=== PATIENT | female | born 1965 | race Two or more races ===

== ENCOUNTER 2017-05-19 07:03 | Outpatient (CLI) | payer OTHER ==
[~2017-05-19 07:03] MED LIST: AMITRIPTYLINE H50 MG; FIORICET 50-301 EACH PO; FIORICET PO; FLONASE16 GM NASAL; GILTUSS TR TAB1 EACH PO; KETO10TA2 PO; MYCO NAIL30 ML TOP; ORPH100T PO; PENLAC6.6 ML TOP; PROMETHAZINE W118 ML PO; PROVENTIL3 ML/2.5 M IH; RELAGESIC TABL1 EACH PO; TESSALON PERLE100 MG PO; TORADOL 10 MG PO; VITAMIN D2000 UNI1; VOLTAREM; VOLTAREM 50 MG PO; ZYRTEC10 MG PO; [UNRECOGNIZED DRUG - OTHER]
== END 2017-05-19 10:56 | disposition home or self-care (01) ==
LOC: TOM 07:03
DX: R22.1 Localized swelling, mass and lump, neck (principal)

== ENCOUNTER 2017-05-21 08:12 | Outpatient (CLI) | payer OTHER ==
[~2017-05-21] VITALS: Ht 152.4 cm; Wt 56.2 kg
== END 2017-05-21 08:30 | disposition home or self-care (01) ==
LOC: OFIC 805 08:12
DX: R22.1 Localized swelling, mass and lump, neck (principal)

== ENCOUNTER 2017-06-26 06:43 | Outpatient (CLI) | payer OTHER ==
[2017-07-01] MEDS ORDERED: MIXED TOCOTRIE1 EACH (17:10)
== END 2017-06-26 06:46 | disposition home or self-care (01) ==
LOC: SONOGRAMA 06:43
DX: E04.1 Nontoxic single thyroid nodule (principal)

== ENCOUNTER → 2017-07-01 | Outpatient (CLI) | payer OTHER ==
[~2017-07-01] VITALS: Ht 152.4 cm; Wt 57.2 kg
[~2017-07-01] MED LIST changes: +MIXED TOCOTRIE1 EACH
== END | disposition home or self-care (01) ==
LOC: PPHC 17:01
DX: R51 Headache (principal); R05 Cough; R09.89 Other specified symptoms and signs involving the circulatory and respiratory systems

== ENCOUNTER 2017-07-02 06:56 | Outpatient (CLI) | payer OTHER | END 2017-07-02 07:07 | disposition home or self-care (01) | LOC: LAB 06:56 | DX: E55.9 Vitamin D deficiency, unspecified (principal) ==

== ENCOUNTER 2017-07-02 06:58 | Outpatient (CLI) | payer OTHER | END 2017-07-02 07:04 | disposition home or self-care (01) | LOC: RAD 06:58 | DX: R05 Cough (principal); R09.89 Other specified symptoms and signs involving the circulatory and respiratory systems ==

== ENCOUNTER → 2017-07-16 17:09 | Outpatient (CLI) | payer OTHER | END | disposition home or self-care (01) | LOC: RAD 17:09 | DX: M54.5 Low back pain (principal); S99.912A Unspecified injury of left ankle, initial encounter; S39.92XA Unspecified injury of lower back, initial encounter; S89.92XA Unspecified injury of left lower leg, initial encounter ==

== ENCOUNTER → 2017-07-17 | Emergency (ER) | payer OTHER ==
[~2017-07-17] VITALS: Ht 162.6 cm; Wt 57.2 kg
== END | disposition home or self-care (01) ==
LOC: ER 15:40
DX: S90.31XA Contusion of right foot, initial encounter (principal); S90.01XA Contusion of right ankle, initial encounter; V49.9XXA Car occupant (driver) (passenger) injured in unspecified traffic accident, initial encounter; Y93.89 Activity, other specified; Y92.488 Other paved roadways as the place of occurrence of the external cause; Y99.8 Other external cause status

== ENCOUNTER → 2017-08-25 | Outpatient (CLI) | payer OTHER | END | disposition home or self-care (01) | LOC: PPHC 15:41 | DX: R51 Headache (principal); M54.5 Low back pain ==

== ENCOUNTER → 2017-11-07 06:53 | Outpatient (CLI) | payer OTHER | END | disposition home or self-care (01) | LOC: LAB 06:53 | DX: R60.0 Localized edema (principal); R51 Headache; R42 Dizziness and giddiness ==

== ENCOUNTER 2017-12-19 10:58 | Emergency (ER) | payer OTHER ==
[~2017-12-19] VITALS: Ht 175.3 cm; Wt 63.5 kg
== END 2017-12-19 15:40 | disposition home or self-care (01) ==
LOC: ER 10:58
DX: S92.911A Unspecified fracture of right toe(s), initial encounter for closed fracture (principal); W22.8XXA Striking against or struck by other objects, initial encounter; Y93.89 Activity, other specified; Y92.098 Other place in other non-institutional residence as the place of occurrence of the external cause; Y99.8 Other external cause status

== ENCOUNTER → 2018-01-24 16:14 | Outpatient (CLI) | payer OTHER ==
[~2018-01-24 16:14] MED LIST changes: +NABUMETONE750 MG PO
== END | disposition home or self-care (01) ==
LOC: RAD 16:14
DX: S92.811A Other fracture of right foot, initial encounter for closed fracture (principal)

== ENCOUNTER 2018-01-30 10:19 | Emergency (ER) | payer OTHER ==
[~2018-01-30] VITALS: Ht 162.6 cm; Wt 59.0 kg
[2018-01-30] MEDS ORDERED: RELPAX20 MG PO (16:29)
== END 2018-01-30 16:44 | disposition home or self-care (01) ==
LOC: ER 10:19
DX: G43.809 Other migraine, not intractable, without status migrainosus (principal)

== ENCOUNTER 2018-06-20 10:26 | Outpatient (CLI) | payer OTHER ==
[~2018-06-20 10:26] MED LIST changes: +BUTALBITAL-ACE1 EACH PO; +RELPAX20 MG PO
== END 2018-06-20 15:56 | disposition home or self-care (01) ==
LOC: LAB 10:26
DX: E55.9 Vitamin D deficiency, unspecified (principal); E78.4 Other hyperlipidemia; Z00.00 Encounter for general adult medical examination without abnormal findings

== ENCOUNTER 2018-10-20 06:33 | Emergency (ER) | payer OTHER ==
[~2018-10-20] VITALS: Ht 162.6 cm; Wt 64.9 kg
== END 2018-10-20 08:54 | disposition home or self-care (01) ==
LOC: ER 06:33
DX: J06.9 Acute upper respiratory infection, unspecified (principal)

== ENCOUNTER 2019-01-01 08:55 | Outpatient (CLI) | payer OTHER | END 2019-01-01 15:00 | disposition home or self-care (01) | LOC: LAB 08:55 | DX: J11.81 Influenza due to unidentified influenza virus with encephalopathy (principal); J06.9 Acute upper respiratory infection, unspecified ==

== ENCOUNTER 2019-04-09 14:54 | Emergency (ER) | payer OTHER ==
[~2019-04-09] VITALS: Ht 162.6 cm; Wt 63.5 kg
== END 2019-04-09 18:36 | disposition home or self-care (01) ==
LOC: ER 14:54
DX: S30.0XXA Contusion of lower back and pelvis, initial encounter (principal); V49.9XXA Car occupant (driver) (passenger) injured in unspecified traffic accident, initial encounter; Y93.89 Activity, other specified; Y92.488 Other paved roadways as the place of occurrence of the external cause; Y99.8 Other external cause status

== ENCOUNTER 2019-07-28 12:36 | Outpatient (CLI) | payer OTHER | END 2019-07-28 13:00 | disposition home or self-care (01) | LOC: RAD 12:36 | DX: R10.2 Pelvic and perineal pain (principal) ==

== ENCOUNTER 2019-08-11 06:35 | Outpatient (CLI) | payer OTHER | END 2019-08-11 06:42 | disposition home or self-care (01) | LOC: LAB 06:35 | DX: J11.1 Influenza due to unidentified influenza virus with other respiratory manifestations (principal); R42 Dizziness and giddiness; Z00.00 Encounter for general adult medical examination without abnormal findings; E78.49 Other hyperlipidemia; E55.9 Vitamin D deficiency, unspecified; E03.0 Congenital hypothyroidism with diffuse goiter ==

== ENCOUNTER → 2019-10-05 | Outpatient (CLI) | payer OTHER | END | disposition home or self-care (01) | LOC: RAD 12:33 | DX: R10.2 Pelvic and perineal pain (principal) ==

== ENCOUNTER 2019-12-15 12:04 | Outpatient (CLI) | payer OTHER | END 2019-12-15 16:04 | disposition home or self-care (01) | LOC: LAB 12:04 → CERTIFICAD 12:04 → LAB 16:04 | DX: Z11.1 Encounter for screening for respiratory tuberculosis (principal) ==

== ENCOUNTER 2020-01-25 13:46 | Outpatient (CLI) | payer OTHER | END 2020-01-25 13:47 | disposition home or self-care (01) | LOC: PPH VACUNA 13:46 | DX: Z23 Encounter for immunization (principal) ==

== ENCOUNTER 2020-04-18 06:36 | Outpatient (CLI) | payer OTHER | END 2020-04-18 06:43 | disposition home or self-care (01) | LOC: LAB 06:36 | PROVIDERS: ATTEND General Practice | DX: R05 Cough (principal); E22.1 Hyperprolactinemia; E55.9 Vitamin D deficiency, unspecified ==

== ENCOUNTER 2020-05-01 06:28 | Outpatient (CLI) | payer OTHER | END 2020-05-01 06:37 | disposition home or self-care (01) | LOC: LAB 06:28 | PROVIDERS: ATTEND Internal Medicine Cardiovascular Disease | DX: D64.89 Other specified anemias (principal); E03.8 Other specified hypothyroidism; E78.2 Mixed hyperlipidemia; I10 Essential (primary) hypertension; E11.9 Type 2 diabetes mellitus without complications ==

== ENCOUNTER 2020-05-03 08:22 | Outpatient (CLI) | payer OTHER | END 2020-05-03 08:34 | disposition home or self-care (01) | LOC: MRI 08:22 | PROVIDERS: ATTEND Internal Medicine Cardiovascular Disease | DX: G93.89 Other specified disorders of brain (principal) | CPT/HCPCS: 70551 ==

== ENCOUNTER 2020-05-18 07:56 | Outpatient (CLI) | payer OTHER | END 2020-05-18 07:59 | disposition HB | LOC: SONOGRAMA 07:56 | PROVIDERS: ATTEND Internal Medicine Cardiovascular Disease | DX: E03.8 Other specified hypothyroidism (principal) ==

== ENCOUNTER 2020-05-23 09:41 | Outpatient (CLI) | payer OTHER | END 2020-05-23 09:56 | disposition home or self-care (01) | LOC: NUCLEAR 09:41 | PROVIDERS: ATTEND Internal Medicine Cardiovascular Disease | DX: M81.0 Age-related osteoporosis without current pathological fracture (principal); E55.9 Vitamin D deficiency, unspecified ==

== ENCOUNTER → 2020-05-23 | Outpatient (CLI) | payer OTHER | END | disposition home or self-care (01) | LOC: MAMO-SONO 08:45 → SONOGRAMA 08:45 → MAMO-SONO 09:45 | PROVIDERS: ATTEND Internal Medicine Cardiovascular Disease | DX: R92.0 Mammographic microcalcification found on diagnostic imaging of breast (principal); N64.59 Other signs and symptoms in breast; R92.2 Inconclusive mammogram ==

== ENCOUNTER 2021-01-12 21:56 | Emergency (ER) | payer OTHER ==
[~2021-01-12] VITALS: Ht 162.6 cm; Wt 72.6 kg
[2021-01-13] MEDS ORDERED: MUCINEX DM ER1 EAC1 PO (01:46)
[2021-01-13] MEDS ORDERED: MEDROLPACK PO (01:46)
[2021-01-13] MEDS ORDERED: LEVALBUTER1.25 MG/3 IH (01:46)
[2021-01-13] MEDS ORDERED: MOXIFLOXACIN H400 MG PO (01:46)
[2021-01-13] MEDS ORDERED: BUTALB-ACETAMI1 EACH PO (02:12)
== END 2021-01-13 05:40 | disposition home or self-care (01) ==
LOC: ER 21:56
DX: J06.9 Acute upper respiratory infection, unspecified (principal); Z03.818 Encounter for observation for suspected exposure to other biological agents ruled out

== ENCOUNTER 2021-02-06 08:00 | Outpatient (CLI) | payer OTHER ==
[~2021-02-06 08:00] MED LIST changes: +BUTALB-ACETAMI1 EACH PO; +LEVALBUTER1.25 MG/3 IH; +MEDROLPACK PO; +MOXIFLOXACIN H400 MG PO; +MUCINEX DM ER1 EAC1 PO
== END 2021-02-06 08:02 | disposition home or self-care (01) ==
LOC: PPH VACUNA 08:00
PROVIDERS: ATTEND Emergency Medicine Pediatric Emergency Medicine
DX: Z23 Encounter for immunization (principal)

== ENCOUNTER 2021-02-24 21:51 | Emergency (ER) | payer OTHER ==
[~2021-02-24] VITALS: Ht 162.6 cm; Wt 67.1 kg
[2021-02-25] MEDS ORDERED: LEVALBUTER1.25 MG/3 IH (00:48)
[2021-02-25] MEDS ORDERED: MUCINEX DM ER1 EAC1 PO (00:48)
[2021-02-25] MEDS ORDERED: AZITHROMYCIN500 MG PO (00:48)
[2021-02-25] MEDS ORDERED: MEDROLPACK PO (00:48)
[2021-02-25] MEDS ORDERED: BUTALB-ACETAMI1 EAC2 PO (01:06)
== END 2021-02-25 01:31 | disposition home or self-care (01) ==
LOC: ER 21:51
DX: R05.9 Cough, unspecified (principal); B96.0 Mycoplasma pneumoniae [M. pneumoniae] as the cause of diseases classified elsewhere; Z03.818 Encounter for observation for suspected exposure to other biological agents ruled out

== ENCOUNTER → 2021-03-31 09:32 | Outpatient (CLI) | payer OTHER ==
[~2021-03-31 09:32] MED LIST changes: +AZITHROMYCIN500 MG PO; +BUTALB-ACETAMI1 EAC2 PO
== END | disposition home or self-care (01) ==
LOC: LAB 09:32
PROVIDERS: ATTEND Internal Medicine Hematology & Oncology
DX: D50.8 Other iron deficiency anemias (principal)

== ENCOUNTER 2021-04-07 09:22 | Outpatient (CLI) | payer OTHER | END 2021-04-07 09:37 | disposition home or self-care (01) | LOC: LAB 09:22 | PROVIDERS: ATTEND Internal Medicine Hematology & Oncology | DX: E04.8 Other specified nontoxic goiter (principal); D50.8 Other iron deficiency anemias; K90.0 Celiac disease; K29.40 Chronic atrophic gastritis without bleeding; D50.0 Iron deficiency anemia secondary to blood loss (chronic); E04.1 Nontoxic single thyroid nodule ==

== ENCOUNTER 2021-08-20 08:57 | Emergency (ER) | payer OTHER ==
[~2021-08-20] VITALS: Ht 162.6 cm; Wt 63.5 kg
== END 2021-08-20 12:20 | disposition home or self-care (01) ==
LOC: ER 08:57
DX: J22 Unspecified acute lower respiratory infection (principal); R05.9 Cough, unspecified

== ENCOUNTER 2021-08-30 06:38 | Emergency (ER) | payer OTHER ==
[~2021-08-30] VITALS: Ht 162.6 cm; Wt 63.5 kg
== END 2021-08-30 10:36 | disposition home or self-care (01) ==
LOC: ER 06:38
DX: J40 Bronchitis, not specified as acute or chronic (principal)

== ENCOUNTER 2021-09-03 06:08 | Day surgery (SDC) | payer OTHER | END 2021-09-03 12:15 | disposition home or self-care (01) | LOC: AMB-ENDOS 06:08 | PROVIDERS: ATTEND Internal Medicine Gastroenterology | DX: K64.3 Fourth degree hemorrhoids (principal); D50.9 Iron deficiency anemia, unspecified ==

== ENCOUNTER 2021-09-14 08:00 | Outpatient (CLI) | payer OTHER | END 2021-09-14 08:30 | disposition home or self-care (01) | LOC: PPH VACUNA 08:00 | PROVIDERS: ATTEND Emergency Medicine Pediatric Emergency Medicine | DX: Z23 Encounter for immunization (principal); Z71.85 Encounter for immunization safety counseling ==

== ENCOUNTER 2021-09-21 10:01 | Outpatient (CLI) | payer OTHER | END 2021-09-21 10:09 | disposition home or self-care (01) | LOC: LAB 10:01 | PROVIDERS: ATTEND Internal Medicine Sports Medicine | DX: E04.1 Nontoxic single thyroid nodule (principal); E22.1 Hyperprolactinemia; D35.2 Benign neoplasm of pituitary gland ==

== ENCOUNTER 2021-10-03 06:30 | Outpatient (CLI) | payer OTHER | END 2021-10-03 06:47 | disposition home or self-care (01) | LOC: LAB 06:30 | PROVIDERS: ATTEND General Practice | DX: U07.1 COVID-19 (principal); B34.9 Viral infection, unspecified ==

== ENCOUNTER 2021-10-15 06:40 | Day surgery (SDC) | payer OTHER | END 2021-10-15 12:10 | disposition home or self-care (01) | LOC: AMB-ENDOS 06:40 | PROVIDERS: ATTEND Internal Medicine Gastroenterology | DX: K25.3 Acute gastric ulcer without hemorrhage or perforation (principal); Z20.822 Contact with and (suspected) exposure to COVID-19 ==

== ENCOUNTER 2021-10-16 06:59 | Outpatient (CLI) | payer OTHER | END 2021-10-16 07:03 | disposition home or self-care (01) | LOC: LAB 06:59 | PROVIDERS: ATTEND General Practice | DX: N39.0 Urinary tract infection, site not specified (principal) ==

== ENCOUNTER 2021-10-24 06:24 | Outpatient (CLI) | payer OTHER | END 2021-10-24 06:25 | disposition home or self-care (01) | LOC: LAB 06:24 | PROVIDERS: ATTEND General Practice | DX: Z00.00 Encounter for general adult medical examination without abnormal findings (principal); E78.5 Hyperlipidemia, unspecified; E55.9 Vitamin D deficiency, unspecified; R42 Dizziness and giddiness; N39.0 Urinary tract infection, site not specified; R10.2 Pelvic and perineal pain ==

== ENCOUNTER 2022-01-09 08:31 | Outpatient (CLI) | payer OTHER | END 2022-01-09 08:36 | disposition home or self-care (01) | LOC: PPH VACUNA 08:31 | PROVIDERS: ATTEND Emergency Medicine Pediatric Emergency Medicine | DX: Z23 Encounter for immunization (principal) ==

== ENCOUNTER 2022-02-19 06:40 | Day surgery (SDC) | payer OTHER | END 2022-02-19 13:15 | disposition home or self-care (01) | LOC: AMB-ENDOS 06:40 | PROVIDERS: ATTEND Internal Medicine Gastroenterology | DX: K25.3 Acute gastric ulcer without hemorrhage or perforation (principal); Z20.822 Contact with and (suspected) exposure to COVID-19 ==

== ENCOUNTER 2022-02-21 10:30 | Outpatient (CLI) | payer OTHER | END 2022-02-21 13:48 | disposition home or self-care (01) | LOC: LAB 10:30 | PROVIDERS: ATTEND General Practice | DX: N39.0 Urinary tract infection, site not specified (principal) ==

== ENCOUNTER 2022-05-27 07:08 | Outpatient (CLI) | payer OTHER | END 2022-05-27 08:23 | disposition home or self-care (01) | LOC: LAB 07:08 | PROVIDERS: ATTEND Internal Medicine Sports Medicine | DX: D50.9 Iron deficiency anemia, unspecified (principal); E78.2 Mixed hyperlipidemia; E03.8 Other specified hypothyroidism; E04.1 Nontoxic single thyroid nodule; E04.9 Nontoxic goiter, unspecified ==

== ENCOUNTER 2022-06-04 07:06 | Outpatient (CLI) | payer OTHER | END 2022-06-04 07:13 | disposition home or self-care (01) | LOC: SONOGRAMA 07:06 | PROVIDERS: ATTEND Internal Medicine Sports Medicine | DX: E04.9 Nontoxic goiter, unspecified (principal); Z98.890 Other specified postprocedural states ==

== ENCOUNTER 2022-06-07 | Outpatient (CLI) | payer OTHER | END 2022-06-07 00:15 | disposition home or self-care (01) | LOC: PPH VACUNA | PROVIDERS: ATTEND Emergency Medicine Pediatric Emergency Medicine | DX: Z23 Encounter for immunization (principal) ==

== ENCOUNTER 2022-06-07 09:01 | Outpatient (CLI) | payer OTHER | END 2022-06-07 10:01 | disposition home or self-care (01) | LOC: LAB 09:01 | PROVIDERS: ATTEND General Practice | DX: R06.02 Shortness of breath (principal); Z03.818 Encounter for observation for suspected exposure to other biological agents ruled out; Z20.828 Contact with and (suspected) exposure to other viral communicable diseases ==

== ENCOUNTER 2022-07-09 09:40 | Day surgery (SDC) | payer OTHER | END 2022-07-09 13:35 | disposition home or self-care (01) | LOC: AMB-ENDOS 09:40 | PROVIDERS: ATTEND Internal Medicine Gastroenterology | DX: K25.9 Gastric ulcer, unspecified as acute or chronic, without hemorrhage or perforation (principal); K28.3 Acute gastrojejunal ulcer without hemorrhage or perforation; Z20.822 Contact with and (suspected) exposure to COVID-19 ==

== ENCOUNTER 2022-10-15 07:09 | Outpatient (CLI) | payer OTHER | END 2022-10-15 07:26 | disposition home or self-care (01) | LOC: RAD 07:09 | PROVIDERS: ATTEND Physical Medicine & Rehabilitation | DX: S32.9XXA Fracture of unspecified parts of lumbosacral spine and pelvis, initial encounter for closed fracture (principal) ==

== ENCOUNTER 2022-11-14 06:53 | Outpatient (CLI) | payer OTHER | END 2022-11-14 07:00 | disposition home or self-care (01) | LOC: LAB 06:53 | DX: E03.8 Other specified hypothyroidism (principal); D63.8 Anemia in other chronic diseases classified elsewhere; N30.90 Cystitis, unspecified without hematuria; E78.00 Pure hypercholesterolemia, unspecified; R73.9 Hyperglycemia, unspecified; K92.1 Melena; Z12.11 Encounter for screening for malignant neoplasm of colon; E55.9 Vitamin D deficiency, unspecified ==

== ENCOUNTER 2022-11-28 07:37 | Outpatient (CLI) | payer OTHER | END 2022-11-28 07:44 | disposition home or self-care (01) | LOC: MAMO-SONO 07:37 | DX: Z12.31 Encounter for screening mammogram for malignant neoplasm of breast (principal); N63.0 Unspecified lump in unspecified breast; N64.4 Mastodynia; N60.11 Diffuse cystic mastopathy of right breast ==

== ENCOUNTER 2023-01-31 14:34 | Outpatient (CLI) | payer OTHER ==
[~2023-01-31 14:34] MED LIST changes: +DICLOFENAC SOD100 MG PO; +METAXALONE800 MG PO; +NORFLEX100MG PO
== END 2023-01-31 14:44 | disposition home or self-care (01) ==
LOC: PPH VACUNA 14:34
PROVIDERS: ATTEND Emergency Medicine Pediatric Emergency Medicine
DX: Z23 Encounter for immunization (principal)
CPT/HCPCS: 90686; G0008

== ENCOUNTER 2023-06-23 13:16 | Outpatient (CLI) | payer OTHER | END 2023-06-23 13:25 | disposition home or self-care (01) | LOC: SONOGRAMA 13:16 | PROVIDERS: ATTEND Internal Medicine Sports Medicine | DX: E04.2 Nontoxic multinodular goiter (principal) ==

== ENCOUNTER 2024-01-08 07:05 | Day surgery (SDC) | payer OTHER ==
[~2024-01-08 07:05] MED LIST changes: +PROTONIX20 MG
[2024-01-08] MEDS ORDERED: MIDAZOLAM HCL 2 MG/2 ML VIAL IV STA (09:05)
[2024-01-08] MEDS ORDERED: fentaNYL CITRATE 50 MCG/ML AMPUL IV STA (09:05)
== END 2024-01-08 11:10 | disposition home or self-care (01) ==
LOC: AMB-ENDOS 07:05
PROVIDERS: ATTEND Internal Medicine Gastroenterology
DX: K25.3 Acute gastric ulcer without hemorrhage or perforation (principal); K20.80 Other esophagitis without bleeding

== ENCOUNTER 2024-05-04 07:04 | Outpatient (CLI) | payer OTHER | END 2024-05-04 07:14 | disposition home or self-care (01) | LOC: SONOGRAMA 07:04 | PROVIDERS: ATTEND Internal Medicine Sports Medicine | DX: E04.1 Nontoxic single thyroid nodule (principal) ==

== ENCOUNTER 2024-11-05 06:30 | Outpatient (CLI) | payer OTHER ==
[2024-11-05 07:32] LABS: PH,URINE 5.5 (5.0-8.0); URINE APPEARANCE Clear; URINE BILIRRUBIN Negative (NEGATIVE); URINE BLOOD Negative; URINE COLOR Yellow; URINE GLUCOSE Negative (NEGATIVE); URINE KETONE Negative (NEGATIVE); URINE LEUKOCYTE Large; URINE NITRATE Negative; URINE PROTEIN Negative (NEGATIVE); URINE UROBILINOGEN 0.2 E.U./dl
[2024-11-05 07:33] LABS: URINE BACTERIA 2305.7 uL (0.0-1933); URINE EPITHELIAL CELLS 24.3 uL (0.0-38.8)
[2024-11-05 07:39] LABS: BASO % 1.1 % (0.1-1.2); EOS % 2.2 % (0.7-7.0); HEMATOCRIT 34.6 % (34.1-44.9); HEMOGLOBIN 11.4 g/dL (11.2-15.7); LYMPH # 1.89 (1.18-3.74); LYMPH % 40.7 % (19.3-53.1); MEAN CORPUSCULAR HEMOGLOBIN 30.8 pg (25.6-32.2); MONO # 0.44 (0.24-0.82); MONO % 9.5 % (4.7-12.5); NEUT # 2.15 (1.56-6.13); NEUT % 46.3 % (34.0-71.1); PLATELET COUNT 146 K/uL (163-369); RED CELL DISTRIBUTION WIDTH 12.7 % (11.6-14.4)
[2024-11-05 08:27] LABS: URINE CAST 0.44 uL (0.0-1.40)
[2024-11-05 08:35] LABS: ALBUMIN 4.1 gm/dL (3.4-5.0); BILIRUBIN TOTAL 0.34 mg/dL (0.3-1.2); CHOL HDL RATIO 2.6 (0-5.0); CREATININE SERUM 0.69 mg/dL (0.55-1.02); GFR 86.78; GLOBULINA 2.8 G/DL (2.4-3.5); POTASSIUM 3.89 mEq/L (3.5-5.1); T4 FREE 0.79 NG/ML (0.76-1.46); TOTAL PROTEIN 6.9 gm/dL (6.4-8.2); TSH 1.22 uIU/mL (0.358-3.74)
== END 2024-11-05 06:35 | disposition home or self-care (01) ==
LOC: LAB 06:30
PROVIDERS: ATTEND Internal Medicine Sports Medicine
DX: E55.9 Vitamin D deficiency, unspecified (principal); D64.9 Anemia, unspecified; E11.9 Type 2 diabetes mellitus without complications; E78.2 Mixed hyperlipidemia; I10 Essential (primary) hypertension; E03.8 Other specified hypothyroidism

== ENCOUNTER 2024-11-23 06:30 | Day surgery (SDC) | payer OTHER ==
[2024-11-23] MEDS ORDERED: DIPHENHYDRAMINE HCL 50 MG/ML VIAL 1ML IV STA (14:22)
[2024-11-23] MEDS ORDERED: MIDAZOLAM HCL 2 MG/2 ML VIAL IV STA (14:23)
== END 2024-11-23 12:10 | disposition home or self-care (01) ==
LOC: AMB-ENDOS 06:30
PROVIDERS: ATTEND Internal Medicine Gastroenterology
DX: K25.9 Gastric ulcer, unspecified as acute or chronic, without hemorrhage or perforation (principal); K29.60 Other gastritis without bleeding

== ENCOUNTER 2025-02-25 13:33 | Emergency (ER) | payer OTHER ==
[~2025-02-25] VITALS: Ht 162.6 cm; Wt 604.6 kg
[2025-02-25] MEDS ORDERED: KETOROLAC TROMETHAMINE 30 MG VIAL IU ONE (14:30)
[2025-02-25] MEDS ORDERED: ACETAMINOPHEN 500 MG GEL..CAP PO ONE ×2 (14:30→14:57)
[2025-02-25] MEDS ORDERED: METOCLOPRAMIDE HCL 5 MG/ML VIAL IV ONE (14:30)
[2025-02-25] MEDS ORDERED: KETOROLAC TROMETHAMINE 30 MG VIAL ONE (14:57)
[2025-02-25] MEDS ORDERED: METOCLOPRAMIDE HCL 5 MG/ML VIAL ONE (14:58)
[2025-02-25] MEDS ORDERED: BUTALB/ACETAMINOPHEN/CAFFEINE 1 TAB TABLET PO ONE ×2 (16:00→16:36)
[2025-02-25] MEDS ORDERED: ONDANSETRON HCL 2 MG/ML VIAL IV ONE (16:00)
[2025-02-25] MEDS ORDERED: FAMOtidine 10 MG/ML (4ML VIAL) IV ONE (16:00)
[2025-02-25] MEDS ORDERED: ONDANSETRON HCL 2 MG/ML VIAL ONE (16:36)
[2025-02-25] MEDS ORDERED: FAMOTIDINE/PF 20 MG/2 ML VIAL ONE (16:36)
[2025-02-25 16:38] LABS: BASO % 0.6 % (0.1-1.2); EOS # 0.05 (0.04-0.54); EOS % 1.0 % (0.7-7.0); LYMPH # 1.19 (1.18-3.74); LYMPH % 24.0 % (19.3-53.1); MEAN PLATELET VOLUME 10.70 fl (9.4-12.4); MONO # 0.27 (0.24-0.82); MONO % 5.4 % (4.7-12.5); NEUT # 3.42 (1.56-6.13); NEUT % 69.0 % (34.0-71.1); RED CELL DISTRIBUTION WIDTH 13.2 % (11.6-14.4)
[2025-02-25 17:37] LABS: COVID-19 AG NEGATIVE (NEGATIVE)
[2025-02-25] MEDS ORDERED: BUTALBIT-ACETA1 EACH PO (17:41)
== END 2025-02-25 19:09 | disposition home or self-care (01) ==
LOC: ER 13:33
PROVIDERS: General Practice
DX: G43.809 Other migraine, not intractable, without status migrainosus (principal); Z20.822 Contact with and (suspected) exposure to COVID-19